=== PATIENT | female | born 1975 | race Caucasian/White ===

== ENCOUNTER 2019-06-23 09:53 | Emergency (ER) | payer BC, OTHER ==
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
[2019-06-23] MEDS: KETOROLAC TROMETHAMINE 60 MG/2 ML VIAL IM ONE (10:50)
[2019-06-23] MEDS: methylPREDNISolone SOD SUCC 125 MG/2 ML VIAL IM ONE (10:50)
[2019-06-23 11:39] VITALS: BP 135/77
--- NOTE | 2019-06-23 14:22 | Diagnostic Imaging Report ---
WHITNEY LEMOS [facility] [address] [facility] [address], [place]. [address] Report Submission Date: Jun 23, 2019 11:43:03 AM CDT Patient Study Name: PAULA BROWNE Date: Jun 23, 2019 10:27:37 AM CDT Modality Type: DX Gender: F Description: CHEST 2VIEW : 79 Institution: [facility] Physician: WHITNEY LEMOS Examination: PA and lateral chest. History: Evaluate lung de leon. Comparison exam: None provided. Wall of the right Findings: PA and lateral views of the chest demonstrates a normal cardiac and mediastinal silhouette. No focal infiltrate. No blunting of the costophrenic margins. Osseous structures are appropriate for age. Impression: No acute pulmonary process. Electronically signed on Jun 23, 2019 11:43:03 AM CDT by: Americo ABBOTT
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
== END 2019-06-23 11:54 | disposition home or self-care (01) ==
LOC: ED 09:53
DX: M79.10 Myalgia, unspecified site (principal)
CPT/HCPCS: 71046; 72040; 96372; 99283; 99284; J1885; J2930